=== PATIENT | male | born 1950 | race Caucasian/White ===

== ENCOUNTER 2018-11-16 19:47 | Inpatient (IN) | payer OTHER ==
[~2018-11-16 19:47] MED LIST: Iopamidol 370 76% 100 ML VIAL ONE
[2018-11-16 21:29] LABS: #Eosinphils 0.1 thou/uL (0.0-0.7); #Lymphocytes 1.8 thou/uL (1.20-3.40); #Monocytes 1.3 thou/uL (0.11-0.59); #Neutrophils 11.4 thou/uL (1.40-6.50); %Basophils 0.1 % (0.0-1.0); %Lymphocytes 12.4 % (21.0-51.0); %Monocytes 9.1 % (0.0-10.0); %Neutrophils 77.4 % (42.0-75.0); Hemoglobin 11.8 g/dL (14.0-18.0); Mean Corpuscular HGB CONC 32.8 g/dL (32.0-36.0); Mean Corpuscular Hemoglobin 30.1 pg (27.0-31.0); Mean Corpuscular Volume 91.6 fL (78.0-98.0); Mean Platelet Volume 7.9 fL (7.4-10.4); Platelet Count 271 thou/uL (130-400); RBC Distribution Width 12.3 % (11.5-14.5); Red Blood Cell (RBC) Count 3.93 mill/uL (4.70-6.10); White Blood Cell (WBC) Count 14.8 thou/uL (4.8-10.8)
[2018-11-16 21:52] LABS: ALT (SGPT) 39 U/L (8-55); AST (SGOT) 28 U/L (5-34); Albumin 3.2 g/dL (3.4-4.8); Alkaline Phosphatase 216 U/L (40-150); Anion Gap 10 mmol/L (10-20); BUN (Urea Nitrogen) 18 mg/dL (8.4-25.7); Bilirubin, Total 1.1 mg/dL (0.2-1.2); Calc. Creatinine Clearance 0 mL/min (70-130); Calcium 8.6 mg/dL (7.8-10.44); Carbon Dioxide 24 mmol/L (23-31); Chloride 105 mmol/L (98-107); Estimated GFR-MDRD Greater than 90; Globulin 3.1 g/dL (2.4-3.5); Glucose 114 mg/dL (80-115); Potassium 3.2 mmol/L (3.5-5.1); Protein, Total 6.3 g/dL (5.8-8.1); Sodium 136 mmol/L (136-145)
[2018-11-16] MEDS ORDERED: Clindamycin/D5W 900 mg/50 ml Premix Bag ONE (22:18)
[2018-11-16] MEDS ORDERED: Piperacillin/Tazobactam 4.5 GM VIAL ONE (22:18)
[2018-11-16] MEDS ORDERED: Morphine 4 MG/ML VIAL ONE (22:18)
[2018-11-16] MEDS ORDERED: Lidocaine 1% w/Epinephrine 1:100K 20 ML VIAL ONE (23:07)
--- NOTE | 2018-11-16 23:10 | CT ---
CT right leg with IV contrast HISTORY: Right leg pain. Abscess from spider bite one week ago. FINDINGS: IV contrast was administered, but 2 attempts were unsuccessful at successfully achieving go od timing of bolus due to loss of IV access. Contrast is seen within the urinary bladder. There is calcification within the arterial structures. Subtle stranding throughout the subcutaneous f at. Reactive lymph nodes at the right inguinal chain. At the anterior aspect of the lower thigh, skin defect is consistent with wound from spider bite. Imm ediately deep to this and extending superiorly is an elongated somewhat multiloculated fluid collection within the subcutaneous tissues extending over a length of 7.8 cm. It extends down to the underlying muscle bundle but does not distort the fat planes. Femur has a normal appearance without aggressive erosion. The fluid collection averages 2.0 cm width. IMPRESSION: Irregular fluid collection within the subcutaneous tissues in the region of anterior lowe r thigh wound. This has a apparent of a non-tense abscess. No invasion of the underlying musculature. Atherosclerosis.
[2018-11-17] MEDS ORDERED: Morphine 4 MG/ML VIAL ONE (01:10)
[2018-11-17] MEDS ORDERED: Bisacodyl 10 MG SUPP PR PRN (01:19)
[2018-11-17] MEDS ORDERED: Acetaminophen 325 MG TAB PO PRN (01:19)
[2018-11-17] MEDS ORDERED: Ondansetron ODT 4 MG TAB PO PRN (01:19)
[2018-11-17] MEDS ORDERED: Acetaminophen 650 MG Suppository PR PRN (01:19)
[2018-11-17] MEDS ORDERED: Potassium Chloride 20 MEQ TAB PO SCH (03:00)
[2018-11-17] MEDS ORDERED: Morphine 2 MG/ML SYRINGE SLOW IVP PRN (03:07)
[2018-11-17] MEDS: Sodium Chloride 0.9% 1,000 ML IV SCH ×4 (03:08→20:48)
[2018-11-17] MEDS: HYDROcodone/Acetaminophen 10/325 mg Tablet PO PRN ×4 (03:09→20:48)
[2018-11-17] MEDS ORDERED: HYDROcodone/Acetaminophen 10/325 mg Tablet ONE (03:12)
[2018-11-17] MEDS ORDERED: Potassium Chloride 20 MEQ TAB ONE (03:12)
[2018-11-17 03:30] LABS: #Eosinphils 0.2 thou/uL (0.0-0.7); #Monocytes 1.3 thou/uL (0.11-0.59); #Neutrophils 9.5 thou/uL (1.40-6.50); %Eosinophils 1.3 % (0.0-10.0); %Lymphocytes 15.5 % (21.0-51.0); %Monocytes 10.1 % (0.0-10.0); %Neutrophils 73.2 % (42.0-75.0); Hemoglobin 11.4 g/dL (14.0-18.0); Mean Corpuscular HGB CONC 33.9 g/dL (32.0-36.0); Mean Corpuscular Hemoglobin 31.6 pg (27.0-31.0); Mean Corpuscular Volume 93.3 fL (78.0-98.0); Mean Platelet Volume 7.9 fL (7.4-10.4); Platelet Count 242 thou/uL (130-400); RBC Distribution Width 12.3 % (11.5-14.5); Red Blood Cell (RBC) Count 3.61 mill/uL (4.70-6.10); White Blood Cell (WBC) Count 12.9 thou/uL (4.8-10.8)
--- NOTE | 2018-11-17 03:34 | HP ---
CHIEF COMPLAINT: Right thigh swelling and redness. HISTORY OF PRESENT ILLNESS: Mr. Garcia is a 68-year-old man, who presents with swelling and redness as well as drainage to the right anterior mid thigh. The patient states he noted last Saturday that something had possibly bit him. He also assumed it could have been a "boil" as he has a history of abscesses in the axilla. The patient states on Saturday he applied heat and it started draining, becoming increasingly swollen and erythematous since then. He reports feeling generally unwell. Has had a temperature and chills. He was transferred here from long term and in the emergency department, underwent an I and D with wound packing. He was started on IV antibiotics with vancomycin, Cleocin, and Zosyn. For his pain, he received morphine. The patient states he has otherwise been in his usual state of health. Denies any numbness or tingling in the right lower extremity. He states the pain has responded well to morphine given in the ER. PAST MEDICAL HISTORY: 1. History of Honey gangrene requiring skin grafts. 2. UT, status post stent x2. 3. Previous CVA. PAST SURGICAL HISTORY: The patient reports: 1. History of back surgery. 2. History of tonsillectomy. 3. Skin grafts. PHYSICAL EXAMINATION: GENERAL: The patient appears well developed, in some discomfort given recent I and D, but without any apparent distress. VITAL SIGNS: Temperature 98.4, pulse 71, respirations 18, O2 saturation 97% on room air, blood pressure 115/59. HEENT: Normocephalic and atraumatic. Pupils are equal, round, and reactive to light. Sclerae without icterus. Oropharynx is clear. NECK: Supple. LUNGS: Clear to auscultation bilaterally. CARDIAC: Regular rate and rhythm. ABDOMEN: Soft, nontender, nondistended. Normoactive bowel sounds present. EXTREMITIES: Notable for right lower extremity +2 pitting edema. The patient reports long-standing bilateral lower leg swelling. Right leg notable for a purpuric wound on the anterior mid thigh. There is a small approximately 1 cm incision with packing in place. Above that, there is a small fluctuant purpuric wound that has an appearance of some sort of bite. There are two other similar areas. This is surrounded by erythema and edema with erythema extending down the lower leg and up the thigh. 3-4 inches above the wound, there were 2 very tiny pustules. NEUROLOGIC: Alert and oriented x3. LABORATORY DATA: White blood count 14.8, hemoglobin 11.8, hematocrit 36, platelets 271. Sodium 136, potassium 3.2, BUN 18, creatinine 0.80, GFR greater than 90, lactic acid 1.7, glucose 114. LFTs unremarkable. Alkaline phosphatase 216, albumin 3.2. IMAGING DATA: CT of the lower extremity showed irregular fluid collection within the subcutaneous tissue in the region of the anterior lower thigh wound. It appears to be a non-tense abscess with no invasion of the underlying musculature. Atherosclerosis present. No evidence of erosion into the femur. Per the report, this skin defect is consistent with wound from a spider bite. They described a multiloculated fluid collection within the subcutaneous tissue extending over a length of 7.8 cm. IMPRESSION AND PLAN: Mr. Garcia is a 68-year-old man, who is being referred for management of the followin. Right thigh spider bite/abscess with cellulitis. The patient has been started on IV antibiotics and we will continue IV clindamycin and vancomycin. The patient has undergone small I and D in the emergency department with wound packing. Given the size of the multiloculated collection measuring 7.8 cm as well as small pustules several inches superior to where the I and D was done, we have placed a consultation to General Surgery for review and possibly further incision and drainage. We will continue to monitor his vitals. His lactic acid was negative at 1.7. 2. Pain. The patient has had response to morphine. We will continue for severe pain and give hydrocodone for moderate pain. The patient kept n.p.o. until seen by Surgery. 3. Hypertension. The patient with a systolic pressure of 98 on assessment which bumped up slightly to 111. We will hold antihypertensives at this time and continue IV hydration. 4. Gastrointestinal prophylaxis. 5. Deep venous thrombosis prophylaxis. We will hold mechanical prophylaxis given the extent of edema and redness involving the right leg. 6. Code status, full. His surrogate decision maker is his son, Saad Garcia. The patient's case was discussed with attending who agrees with plan of care as described above. Job ID: [id number]
[2018-11-17 03:51] LABS: Anion Gap 12 mmol/L (10-20); BUN (Urea Nitrogen) 16 mg/dL (8.4-25.7); Calc. Creatinine Clearance 0 mL/min (70-130); Calcium 8.5 mg/dL (7.8-10.44); Carbon Dioxide 23 mmol/L (23-31); Chloride 107 mmol/L (98-107); Estimated GFR-MDRD Greater than 90; Glucose 106 mg/dL (80-115); Potassium 3.3 mmol/L (3.5-5.1); Sodium 139 mmol/L (136-145)
[2018-11-17] MEDS ORDERED: Sodium Chloride 0.9% 500 ML IV SCH (05:30)
[2018-11-17] MEDS ORDERED: Clindamycin/D5W 600 MG in Premix Bag 1 BAG IVPB SCH (08:30)
[2018-11-17] MEDS: Piperacillin/Tazobactam 4.5 GM in Sodium Chloride 0.9% 100 ML IVPB SCH ×2 (08:59→16:30)
[2018-11-17] MEDS ORDERED: Vancomycin HCl 1 GM in Premix Bag 1 BAG IVPB SCH (09:00)
[2018-11-17] MEDS ORDERED: Famotidine/PF 20 mg/2ml Vial SLOW IVP SCH (09:00)
[2018-11-17] MEDS ORDERED: Lidocaine 1% (PF) 30 ML VIAL ONE ×2 (09:47→10:14)
[2018-11-17] MEDS ORDERED: NS 0.9% w/ 20 MEQ KCL 1,000 ML/1,000 ML BAG IV SCH (10:30)
[2018-11-17] MEDS ORDERED: Lidocaine 1% w/Epinephrine 1:100K 20 ML VIAL FS SCH (10:30)
[2018-11-17] MEDS ORDERED: Polyethylene Glycol 3350 17 GM Packet PO PRN (10:32)
[2018-11-17] MEDS ORDERED: Milk Of Magnesia 30 ML UDCUP PO PRN (10:32)
[2018-11-17] MEDS: Potassium Chloride 20 MEQ TAB PO SCH ×2 (12:52→16:31)
[2018-11-17] MEDS: Vancomycin HCl 1.25 GM in Sodium Chloride 0.9% 250 ML 250 ML IVPB SCH (14:31)
--- NOTE | 2018-11-17 15:18 | CON ---
DATE OF CONSULTATION: HISTORY OF PRESENT ILLNESS: He is a 68-year-old male patient, incarcerated for the last 3-1/2 years, has experienced an abscess over his right thigh. He is unaware of how this occurred, but thinks it may be an insect bite. In the emergency room, a small incision was made and Nu Gauze applied. He has a larger area of cellulitis, even a CAT scan is obtained. On evaluation, he has a Nu Gauze that was removed and this wound tracked cephalad about 8 cm, undermining. There is significant cellulitis and induration. ALLERGIES: NONE. SOCIAL HISTORY: Tobacco abuse, prior to incarceration. Alcohol use, prior to incarceration. PAST MEDICAL HISTORY: Stroke affecting speech and right-sided weakness resolved without residual; prior history of coronary artery disease with stents and PTCAs, currently asymptomatic; and hypertension. PAST SURGICAL HISTORY: Lumbar surgery, coronary stents, prior history of Honey's gangrene requiring debridement and skin grafts, and history of tonsillectomy. PHYSICAL EXAMINATION: VITAL SIGNS: Temperature 98.1, pulse 67, and blood pressure 125/68. LUNGS: Clear to auscultation. CARDIAC: Regular rate and rhythm without murmur or gallop. ABDOMEN: Soft and nontender. EXTREMITIES: Right thigh abscess very indurated with surrounding cellulitis. Small opening inferiorly with Nu Gauze about 2 cm opening with undermining cephalad about 8 cm. ASSESSMENT: Significant abscess, right thigh. PLAN: Further incision and drainage at the bedside. He consents and understands the risks and benefits. We will plan at the bedside. Job ID: [id number]
--- NOTE | 2018-11-17 15:45 | OP ---
DATE OF PROCEDURE: 11/17/2018 PREOPERATIVE DIAGNOSIS: Right thigh abscess. POSTOPERATIVE DIAGNOSIS: Right thigh abscess. PROCEDURES PERFORMED: Incision and drainage of right thigh abscess, previously drained in the emergency room with small opening cephalad extension. ANESTHESIA: 1% Xylocaine (Xylocaine with epinephrine not available in the dye load). DESCRIPTION OF PROCEDURE: With the patient at bedside, his right thigh was prepared with alcohol. Local anesthetic was infiltrated in the skin and subcutaneous tissue. The small opening extended cephalad about 8 cm unroofing a large abscess cavity, debriding purulent material, sent it for culture. Saline wet-to-dry dressing applied. The patient tolerated the procedure well. Job ID: [id number]
[2018-11-17] MEDS: Enoxaparin Sodium 40 MG/0.4 ML SYRINGE SC SCH (20:48)
[2018-11-17] MEDS: Senokot S 8.6-50 MG TAB PO SCH (20:49)
[2018-11-17] MEDS ORDERED: Senokot S 8.6-50 MG TAB PO SCH (21:00)
[2018-11-17 21:26] VITALS: BMI 33.6
[2018-11-18] MEDS: Piperacillin/Tazobactam 4.5 GM in Sodium Chloride 0.9% 100 ML IVPB SCH ×3 (00:14→18:34)
--- NOTE | 2018-11-18 00:42 | PDOC.EVN ---
Event Note - Event Note Event Note: Nurses requesting patient be placed in plastic restraints for patient comfort ( is a prisoner and is wearing metal handcuffs). Both hands are swollen from IV infiltration and metal handcuffs are causing skin breakdown. Guards at the bedside state they need a order for the patient to be placed in plastic restraints.
[2018-11-18] MEDS: Vancomycin HCl 1.25 GM in Sodium Chloride 0.9% 250 ML 250 ML IVPB SCH ×2 (01:25→15:00)
[2018-11-18] MEDS: HYDROcodone/Acetaminophen 10/325 mg Tablet PO PRN ×3 (05:21→18:36)
[2018-11-18 06:29] LABS: #Eosinphils 0.5 thou/uL (0.0-0.7); #Lymphocytes 1.8 thou/uL (1.20-3.40); #Monocytes 0.7 thou/uL (0.11-0.59); #Neutrophils 5.3 thou/uL (1.40-6.50); %Basophils 0.4 % (0.0-1.0); %Eosinophils 5.5 % (0.0-10.0); %Lymphocytes 21.4 % (21.0-51.0); %Monocytes 8.4 % (0.0-10.0); %Neutrophils 64.3 % (42.0-75.0); Hemoglobin 11.4 g/dL (14.0-18.0); Mean Corpuscular HGB CONC 33.1 g/dL (32.0-36.0); Mean Corpuscular Volume 93.8 fL (78.0-98.0); Mean Platelet Volume 7.9 fL (7.4-10.4); Platelet Count 228 thou/uL (130-400); RBC Distribution Width 12.4 % (11.5-14.5); Red Blood Cell (RBC) Count 3.69 mill/uL (4.70-6.10); White Blood Cell (WBC) Count 8.3 thou/uL (4.8-10.8)
[2018-11-18 06:42] LABS: Anion Gap 11 mmol/L (10-20); BUN (Urea Nitrogen) 12 mg/dL (8.4-25.7); Calc. Creatinine Clearance 141 mL/min (70-130); Calcium 8.2 mg/dL (7.8-10.44); Carbon Dioxide 21 mmol/L (23-31); Chloride 109 mmol/L (98-107); Estimated GFR-MDRD Greater than 90; Glucose 107 mg/dL (80-115); Potassium 3.8 mmol/L (3.5-5.1); Sodium 137 mmol/L (136-145)
[2018-11-18] MEDS: Saccharomyces boulardii 250 MG CAP PO SCH (09:10)
[2018-11-18] MEDS: Senokot S 8.6-50 MG TAB PO SCH ×3 (09:10→20:14)
[2018-11-18 13:06] LABS: Vancomycin, Trough 10.1 ug/mL
[2018-11-18] MEDS ORDERED: Vancomycin HCl 1.5 GM in Sodium Chloride 0.9% 250 ML 300 ML IVPB SCH (13:30)
[2018-11-18] MEDS: Enoxaparin Sodium 40 MG/0.4 ML SYRINGE SC SCH (20:13)
[2018-11-18] MEDS: Amlodipine 5 MG TAB PO SCH (20:14)
[2018-11-18] MEDS: Lisinopril 5 MG TAB PO SCH (20:14)
[2018-11-18] MEDS ORDERED: Terazosin HCl 5 MG CAP PO SCH (21:00)
--- NOTE | 2018-11-18 21:02 | PDOC.HOSPP ---
- Subjective Subjective: Patient seen and examined for Rt thigh abscess s/p I/D. No fever or chills. No new complaints. No overnight events - Objective Vital Signs & Weight: Vital Signs (12 hours) Temp Pulse Resp BP BP Pulse Ox 11/18/18 20:14 76 129/80 11/18/18 19:42 98.2 F 76 18 129/80 95 11/18/18 15:50 97.8 F 75 20 143/87 H 95 11/18/18 11:48 97.6 F 75 16 158/90 H 90 L Weight Admit Weight 208 lb 6.4 oz Weight 208 lb 6.4 oz I&O: 11/17/18 11/18/18 11/19/18 06:59 06:59 06:59 Intake Total 4100 Balance 4100 Result Diagrams: 11/18/18 06:16 11/18/18 06:16 ROS - Review of Systems All systems: All other ROS were reviewed and found negative. Respiratory: denies: cough, dry, shortness of breath, hemoptysis, SOB with excertion, pleuritic pain, sputum, wheezing, other Cardiovascular: denies: chest pain, palpitations, orthopnea, paroxysmal noc. dyspnea, edema, light headedness, other Gastrointestinal: denies: nausea, vomitting, abdominal pain, diarrhea, constipation, melena, hematochezia, other - Medication Medications: Active Medications Generic Name Dose Route Start Last Admin Trade Name Freq PRN Reason Stop Dose Admin Hydrocodone Bitart/Acetaminophen 1 tab 11/17/18 01:19 11/18/18 18:36 Panora 10/325 PO 1 tab Q4H PRN Administration Moderate Pain (4-6) Albuterol/Ipratropium 3 ml 11/17/18 23:08 11/18/18 01:15 Duoneb NEB 3 ml [id number] PRN Administration SOB &/or Wheezing Amlodipine Besylate 5 mg 11/18/18 21:00 11/18/18 20:14 Norvasc PO 5 mg BID DANIELLE Administration Enoxaparin Sodium 40 mg 11/17/18 21:00 11/18/18 20:13 Lovenox SC 40 mg 2100 DANIELLE Administration Piperacillin Sod/Tazobactam 100 mls @ 200 mls/hr 11/17/18 08:00 11/18/18 18: 34 Sod 4.5 gm/ Sodium Chloride IVPB 100 mls 0800,1600,2359 DANIELLE Administration Lisinopril 5 mg 11/18/18 21:00 11/18/18 20:14 Zestril PO 5 mg BID DANIELLE Administration Morphine Sulfate 2 mg 11/17/18 03:07 11/18/18 10:36 Morphine SLOW IVP 2 mg Q4H PRN Administration Severe Pain (7-10) Saccharomyces Boulardii 250 mg 11/18/18 09:00 11/18/18 09:10 Florastor PO 250 mg DAILY DANIELLE Administration Senna/Docusate Sodium 1 tab 11/17/18 21:00 11/18/18 20:14 Senokot S PO Not Given BID DANIELLE Terazosin HCl 10 mg 11/18/18 21:00 11/18/18 20:14 Hytrin PO 10 mg HS DANIELLE Administration - Exam NAD Heart: RRR, no gallops Respiratory: CTAB, no rales Gastrointestinal: soft, non-tender, normal bowel sounds Extremities: no edema Skin: no rashes (Rt thigh dressing with improving erythema) Hosp A/P (1) Cellulitis of thigh Code(s): L03.119 - CELLULITIS OF UNSPECIFIED PART OF LIMB Status: Acute (2) Hypokalemia Code(s): E87.6 - HYPOKALEMIA Status: Acute (3) Obesity (BMI 30.0-34.9) Code(s): E66.9 - OBESITY, UNSPECIFIED Status: Chronic (4) CAD (coronary artery disease) Code(s): I25.10 - ATHSCL HEART DISEASE OF [place] CORONARY ARTERY W/O ANG PCTRS Status: Chronic (5) HTN (hypertension) Code(s): I10 - ESSENTIAL (PRIMARY) HYPERTENSION Status: Chronic (6) Tobacco dependence Code(s): F17.200 - NICOTINE DEPENDENCE, UNSPECIFIED, UNCOMPLICATED - Plan Cont Vancomycin Await sensitivities Replace Potassium Resume Amlodipine/ACEI DC IVF
[2018-11-19] MEDS: HYDROcodone/Acetaminophen 10/325 mg Tablet PO PRN ×4 (00:13→16:13)
[2018-11-19] MEDS: Vancomycin HCl 1.5 GM in Sodium Chloride 0.9% 250 ML 300 ML IVPB SCH ×2 (00:17→12:33)
[2018-11-19] MEDS ORDERED: Aspirin 81 mg Enteric Coated Tablet PO SCH (09:00)
[2018-11-19] MEDS: Amlodipine 5 MG TAB PO SCH (09:14)
[2018-11-19] MEDS: Lisinopril 5 MG TAB PO SCH (09:14)
[2018-11-19] MEDS: Saccharomyces boulardii 250 MG CAP PO SCH (09:15)
[2018-11-19] MEDS: Senokot S 8.6-50 MG TAB PO SCH (09:15)
[2018-11-19] MEDS ORDERED: diphenhydrAMINE 25 MG CAP PO SCH (14:00)
--- NOTE | 2018-11-19 14:01 | CON ---
DATE OF CONSULTATION: 11/19/2018 REASON FOR CONSULTATION: Abscess, right thigh. HISTORY OF PRESENT ILLNESS: A 68-year-old history of prior Honey gangrene few years ago, coronary artery disease with myocardial infarction and prior CVA, who is an inmate at [facility] in [place] and has had previous small areas of folliculitis in the axillary region and now has developed an abscess in the right anterior thigh region a few days before admission without any obvious inciting factor, had surgical debridement by Dr. Horowitz. Cultures have yielded MRSA with a very broad resistance profile. Currently, he is feeling better. He is still having a lot of itching, maybe related to the vancomycin administration. He has mild headaches. No visual symptoms, sore throat, odynophagia, or dysphagia. No chest pain. No dyspnea. No cough. He does have back pain, but is usual, nothing different than the chronic pattern. No abdominal pain. He is voiding without difficulty and no other joint symptoms. PAST MEDICAL HISTORY: Honey gangrene, coronary artery disease, myocardial infarction with two stents, and prior CVA. PAST SURGICAL HISTORY: Laminectomy, tonsillectomy, skin graft. FAMILY HISTORY: Noncontributory. SOCIAL HISTORY: He is currently an inmate at [facility] in [place]. PHYSICAL EXAMINATION: VITAL SIGNS: Temperature max 98.3, blood pressure 130/70, pulse 75, respirations 18, O2 saturation 94%-98%. SKIN: Shows the area of abscess drainage in right anterior thigh. The area is packed. There is some induration and mild erythema around the slit-like opening. Peripheral IV access. No lymphadenopathy. Axillary area with no active inflammatory nodule at this time. HEENT: Ocular movements conjugate. Oral cavity normal. NECK: Supple. LUNGS: Symmetric. Clear breath sounds. HEART: S1 and S2, regular rate. No S3 or S4. ABDOMEN: Soft, not distended or tender. No ascites. No bladder distention. No other joint inflammatory process. NEUROLOGIC: Nonfocal. Cognitive function appears to be intact. LABORATORY DATA: White cell count was down from 14 to 8.3, hemoglobin 11.4, platelets 228 with normal differential. Sodium 137, creatinine 0.68. Transaminases and bilirubin normal. Alkaline phosphatase 216, albumin 3.2. Vancomycin trough 10.1. Microbiology with MRSA with very broad resistance profile, except for gentamicin, Zyvox, rifampin, and vancomycin. The patient has had 2 sets of blood cultures, which are negative at 48 hours. IMAGING STUDIES: Lower extremity CT, which demonstrated the abscess. ASSESSMENT: 1. Coronary artery disease. 2. Folliculitis, axillary region, likely colonization by methicillin-resistant Staphylococcus aureus. 3. Methicillin-resistant Staphylococcus aureus abscess, right anterior thigh without bacteremia with a very broad resistance profile. DISCUSSION: The options for management would include short course of oral linezolid. No other oral options are available in view of the resistance profile. The patient probably would not need more than 3 or 5 days of therapy since he did not have a lot of cellulitis and the abscess has been drained fairly completely. Assuming that his blood cultures remain negative and the results of those need to be followed to final call by the laboratory. After that, then I would advise decolonization with Hibiclens and mupirocin. The Hibiclens to be used daily for 1 week of every month for 3 consecutive months, likewise the mupirocin. The intention of that is to decrease the risk of relapse of similar problem. It is possible that just a drainage procedure plus the antimicrobial therapy that was given here in the inhouse since the admission would be enough to lead to resolution of the inflammatory process, but due to the size of the abscess, I would probably advise 3 to 5 days of oral linezolid 600 mg twice daily after discharge. Job ID: [id number]
--- NOTE | 2018-11-19 14:49 | DIS ---
DATE OF ADMISSION: 11/17/2018 DATE OF DISCHARGE: 11/19/2018 DISCHARGE DISPOSITION: The patient is an inmate. DISCHARGE FOLLOWUP: Follow up with primary care physician at [facility]. DISCHARGE MEDICATIONS: Linezolid 600 mg b.i.d. for next 5 days. All other home medications were left unchanged, including amlodipine, aspirin, lisinopril, omeprazole, and terazosin. INPATIENT REFUELER: 1. Infectious Disease, Dr. Hernandez. 2. General Surgery, Dr. Horowitz. DISCHARGE CONDITION: The patient was seen and examined on the day of discharge. Denies any new complaints. No chest pain, shortness of breath, or palpitations reported. INPATIENT PROCEDURES: On November 17, 2018, the patient underwent incision and drainage of right thigh abscess. BRIEF HOSPITAL COURSE: The patient is a 68-year-old male with history of Honey gangrene requiring a skin graft in the past, presented to the emergency room with right thigh swelling and redness. His workup was consistent with right thigh abscess. He underwent incision and drainage in the emergency room. He was seen by General Surgery, Dr. Horowitz, and had a more wider incision and drainage while on the floor. He was placed on vancomycin and Zosyn. His wound cultures showed MRSA sensitive to vancomycin, Zyvox, and gentamicin. He was seen by Infectious Disease, Dr. Hernandez, who recommended linezolid for next 5 days. He will also need decolonization with Hibiclens and mupirocin per Infectious Disease. Primary care physician has advised to follow up on the final blood cultures. So far, his blood cultures have been negative. LABORATORY DATA: WBC on admission was 14.8, at discharge was 8.3. Potassium levels were 3.2, at discharge 3.8. Vancomycin trough was 10.1. DIAGNOSTIC TESTS: Lower extremity CT done on admission showed irregular fluid collection with subcutaneous tissues in the region of the anterior lower thigh. DISCHARGE DIAGNOSES: 1. Sepsis secondary to right thigh cellulitis. 2. Acute pain secondary to sepsis. 3. Hypokalemia, replaced. 4. Hypertension. 5. Obesity with a BMI of 33.6. 6. Coronary artery disease, status post stent placement. 7. History of cerebrovascular accident. 8. History of Honey gangrene, requiring skin graft. 9. Chronic anemia. 10. Tobacco dependence. 11. Benign prostatic hypertrophy. PLAN: Plan of care was discussed with the patient in detail. He stated understanding. Job ID: [id number]
[2018-11-19 15:01] VITALS: BP 112/72; TEMP 97.9
== END 2018-11-19 17:40 | DRG 854 ==
LOC: ERS 19:47 → OBSVTOIN 11-17 02:44 → ERHOLD 11-17 02:44 → SURG B 11-17 06:47
PROVIDERS: ADMIT Internal Medicine; ATTEND Internal Medicine
PROC: 0H9HXZZ Drainage of Right Upper Leg Skin, External Approach (ICD-10-PCS; principal; 2018-11-17)
PROC: 0J9L0ZZ Drainage of Right Upper Leg Subcutaneous Tissue and Fascia, Open Approach (ICD-10-PCS; 2018-11-18)
DX: A41.02 Sepsis due to Methicillin resistant Staphylococcus aureus (principal); L02.415 Cutaneous abscess of right lower limb; F17.210 Nicotine dependence, cigarettes, uncomplicated; E87.6 Hypokalemia; E66.9 Obesity, unspecified; I25.10 Atherosclerotic heart disease of native coronary artery without angina pectoris; I10 Essential (primary) hypertension; N40.0 Benign prostatic hyperplasia without lower urinary tract symptoms; L73.9 Follicular disorder, unspecified; Z68.33 Body mass index [BMI] 33.0-33.9, adult; I25.2 Old myocardial infarction; Z79.82 Long term (current) use of aspirin; Z79.899 Other long term (current) drug therapy
CPT/HCPCS: 10060; 36415; 80048; 80053; 80202; 83605; 83735; 85025; 87040; 87070; 87077; 87186; 87205; 94640; 96361; 96365; 96367; 96374; 96375; J1650; J2001; J2270; J2543; J3370; J3490; J7050; J7620; Q0163; Q9967; S0028